=== PATIENT | male | born 1975 | race Hispanic/Latino ===

== ENCOUNTER 2022-06-14 18:00 | Emergency (ER) | payer OTHER, SELFPAY ==
[2022-06-14] MEDS ORDERED: Ketorolac Tromethamine 30 MG/ML VIAL ONE (21:28)
== END 2022-06-14 23:04 | disposition home or self-care (01) ==
LOC: ERS 18:00
DX: S16.1XXA Strain of muscle, fascia and tendon at neck level, initial encounter (principal); V49.40XA Driver injured in collision with unspecified motor vehicles in traffic accident, initial encounter; Y92.410 Unspecified street and highway as the place of occurrence of the external cause
CPT/HCPCS: 72125; 96372; J1885